=== PATIENT | male | born 1970 | race Caucasian/White ===

== ENCOUNTER → 2019-01-02 | Outpatient (CLI) | payer BC ==
[2019-01-02 14:40] LABS: HCT 46.3 % (39.0-53.0); HGB 15.4 gm/dL (13.0-17.5); MCHC 33.3 g/dL (31.0-37.0); MCV 96.2 fL (80.0-100.0); Platelet Count 251 k/uL (150-450); RBC 4.81 m/uL (4.30-5.90); RDW 14.1 % (11.5-15.5); WBC 14.5 k/uL (3.8-10.6)
[2019-01-02 14:51] LABS: Appearance,Urine Clear (Clear); Bilirubin,Urine Negative (Negative); Blood,Urine Negative (Negative); Color,Urine Yellow; Glucose,Urine (UA) Negative (Negative); Ketones,Urine Negative (Negative); Leukocyte Esterase,Urine Negative (Negative); Nitrite,Urine Negative (Negative); PH, Urine 5.5 (5.0-8.0); Protein,Urine Negative (Negative); Urobilinogen,Urine <2.0 mg/dL (<2.0)
[2019-01-02 14:52] LABS: Partial Thromboplastin Time 26.1 sec (22.0-30.0); Prothrombin Time 10.5 sec (9.0-12.0)
[2019-01-02 14:55] LABS: ALT 54 U/L (21-72); AST 41 U/L (17-59); African American GFR (CKD) >90 (>60 ml/min/1.73 sqM); Albumin 4.7 g/dL (3.5-5.0); Alkaline Phosphatase 48 U/L (38-126); Anion Gap 9 mmol/L; Blood Urea Nitrogen 19 mg/dL (9-20); Calcium 9.8 mg/dL (8.4-10.2); Carbon Dioxide 25 mmol/L (22-30); Chloride 107 mmol/L (98-107); Glucose 95 mg/dL (74-99); Potassium 4.6 mmol/L (3.5-5.1); Sodium 141 mmol/L (137-145); Total Bilirubin 0.2 mg/dL (0.2-1.3); Total Protein 7.8 g/dL (6.3-8.2)
== END | disposition home or self-care (01) ==
LOC: LABPAT 13:58
PROVIDERS: ATTEND Orthopaedic Surgery
DX: Z01.812 Encounter for preprocedural laboratory examination (principal); Z01.818 Encounter for other preprocedural examination; M16.11 Unilateral primary osteoarthritis, right hip
CPT/HCPCS: 80053; 81003; 85027; 85610; 85730; 87070; 93005

== ENCOUNTER 2019-01-09 05:29 | Inpatient (IN) | payer BC ==
[~2019-01-09 05:29] MED LIST: ACETAMINOPHEN TAB 500 MG TAB PO ONE; GABAPENTIN 300 MG CAP PO ONE; MELOXICAM 7.5 MG TAB PO ONE; TRANEXAMIC ACID 1,000 MG in SODIUM CHLORIDE 0.9% 100 ML IVPB ONE
[2019-01-09] MEDS ORDERED: ONDANSETRON 4 MG/2 ML VIAL IVP ONE (05:38)
[2019-01-09] MEDS ORDERED: LIDOCAINE 1% 20 ML VIAL (10MG/ML) FOR IV START INTRADERMA PRN (05:38)
[2019-01-09] MEDS ORDERED: DEXAMETHASONE SOD PHOSPHATE 10 MG/ML 1 ML VIAL IV ONE (05:38)
[2019-01-09] MEDS ORDERED: fentaNYL (PF) 50 MCG/ML 2 ML AMP IV PRN (05:38)
[2019-01-09] MEDS: LACTATED RINGERS 1,000 ML IV SCH (06:15)
[2019-01-09 06:44] LABS: HCT 42.8 % (39.0-53.0); HGB 14.3 gm/dL (13.0-17.5); MCH 31.6 pg (25.0-35.0); MCHC 33.5 g/dL (31.0-37.0); MCV 94.3 fL (80.0-100.0); Mean Platelet Volume 7.9; Platelet Count 214 k/uL (150-450); RBC 4.54 m/uL (4.30-5.90); WBC 10.4 k/uL (3.8-10.6)
[2019-01-09] MEDS ORDERED: PHENYLEPHRINE-0.9% NACL SYG 1 MG/10 ML SYRINGE ONE (06:49)
[2019-01-09] MEDS ORDERED: PROPOFOL 10 MG/ML 20 ML VIAL IV ONE (06:49)
[2019-01-09] MEDS ORDERED: fentaNYL (PF) 50 MCG/ML 2 ML AMP ONE (06:49)
[2019-01-09] MEDS ORDERED: LACTATED RINGERS 1,000 ML BAG IV ONE (06:49)
[2019-01-09] MEDS ORDERED: ePHEDrine SULFATE/0.9% NACL/PF 50 MG/5 ML SYRINGE IV ONE (06:49)
[2019-01-09] MEDS ORDERED: HEPARIN SODIUM,PORCINE 10,000 UNIT/ML 1 ML VIAL ONE (06:49)
[2019-01-09] MEDS ORDERED: TRANEXAMIC ACID 1,000 MG/10 ML VIAL ONE (06:49)
[2019-01-09] MEDS ORDERED: SODIUM CHLORIDE 0.9% 100 ML BAG ONE (06:49)
[2019-01-09] MEDS ORDERED: LIDOCAINE 1% INJ 10MG/ML (20 ML MDV) ONE (06:49)
[2019-01-09] MEDS ORDERED: MIDAZOLAM 2 MG/2 ML VIAL ONE (06:49)
[2019-01-09] MEDS ORDERED: ceFAZolin 3,000 MG in SODIUM CHLORIDE 0.9% IRRIGATIO 3,000 ML IRRIGATION ONE (06:55)
[2019-01-09] MEDS ORDERED: MAGNESIUM HYDROXIDE 2,400 MG/10 ML CUP PO PRN (07:00)
[2019-01-09] MEDS ORDERED: NALOXONE 0.4 MG/ML 1 ML VIAL IV PRN (07:00)
[2019-01-09] MEDS: ROPIVACAINE 246.25 MG, EPINEPHrine 0.5 MG, KETOROLAC 30 MG, cloNIDine HCL/PF 80 MCG, WA... MISCELLANE ONE ×10 (07:00→08:16)
[2019-01-09] MEDS ORDERED: HYDROcodone/APAP 5-325MG 1 EACH TAB PO PRN (07:00)
[2019-01-09] MEDS ORDERED: hydrOXYzine PAMOATE 25 MG CAP PO PRN (07:00)
[2019-01-09] MEDS ORDERED: ONDANSETRON 4 MG/2 ML VIAL IVP PRN (07:00)
[2019-01-09] MEDS ORDERED: HYDROmorphone 0.5 MG/0.5 ML SYRINGE IVP PRN (07:00)
[2019-01-09] MEDS ORDERED: DIAZEPAM 5 MG TAB PO PRN (07:00)
[2019-01-09] MEDS ORDERED: HYDROmorphone 1 MG/ML 1 ML SYRINGE IVP PRN (07:00)
--- NOTE | 2019-01-09 08:28 | P.OP ---
Date of Procedure: 01/09/19 Preoperative Diagnosis: Severe osteoarthritis right hip Postoperative Diagnosis: Severe osteoarthritis right hip Procedure(s) Performed: Right total hip arthroplasty with a direct anterior approach Implants: Blount and nephew Polarstem size 3 standard Blount [employer] Nephew R3, 3 hole acetabular shell, 52 mm Blount [employer] Nephew reflection 6.5 mm cancellus screw, 20 mm 2 Blount [employer] Nephew R3, XLPE 20 acetabular liner Blount [employer] Nephew Oxinium femoral head 36 m, -3 All components were press-fit. The articulation is Oxinium on polyethylene. Anesthesia: spinal Surgeon: Tomy Helton Electromechanical Equipment Tester #1: Sheila Stock Estimated Blood Loss (ml): 200 (64 mL returned with Cell Saver) Pathology: other (Femoral head) Condition: stable Disposition: PACU Indications for Procedure: After failure of conservative treatment we discussed the surgical and nonsurgical treatment options at length. Patient wishes to proceed with a total hip arthroplasty with a direct anterior approach. Complications specific to this procedure were discussed at length, including but not limited to infection, leg length discrepancy, dislocation, and nerve injury. Patient is aware of all these complications and informed consent was obtained Operative Findings: The operative findings are consistent with severe osteoarthritis of the right hip Description of Procedure: Patient was seen and evaluated in the preoperative area, consent was reviewed, and the surgical site was marked with a skin marker. Patient was then brought to the operating room and given prophylactic antibiotics intravenously. 1 g of Tranexamic acid was also given. A spinal anesthetic was administered by the anesthesia department. The patient was then placed on the [place] table with the bony prominences well-padded. The hip area was then prepped and draped in usual sterile fashion. A universal timeout was then performed, which confirmed the patient's name, surgical site, ALLERGIES, and procedure being performed. Next the incision site was located at 1 cm distal and 1 cm lateral to the anterior superior iliac spine. The skin and subcutaneous tissues were sharply incised. Incision was carefully dissected down to the fascia overlying the tensor fascia johnny muscle. This fascia was then incised in line with the incision. Next, using blunt finger dissection, the tensor fascia johnny muscle was dissected off its investing fascia. The muscle was then carefully retracted laterally with a cobra retractor over the lateral neck of the femur. Next, the circumflex vessels were identified and cauterized using the AquaMantis device. The anterior hip capsule was then exposed. The capsule was then opened and an inverted T fashion. Cobra retractors were then placed intracapsularly. The proximal femur was then visualized. The femoral neck was then osteotomized appropriate level above the lesser trochanter. Small amount of traction was placed with the [place] table. A small wedge of bone was then removed from the remaining femoral head. Next, using a corkscrew femoral head was easily removed from the acetabulum. On gross visual inspection, the femoral head had complete loss of articular cartilage in mu ltiple periarticular osteophytes. Attention was then turned to the acetabulum. the acetabulum was exposed and any remaining labrum was excised. Sequential reaming of the acetabulum was performed using fluoroscopic guidance. When the appropriate size was reached, a trial was then placed. The position and fit of the trial was checked with fluoroscopy. The trial was then removed. Then, using fluoroscopic guidance, the final implant was impacted at 20 of anteversion and 40 of abduction, and fully seated in the acetabulum. 2 screws were then placed in the acetabulum. Again fluoroscopy was used to check position of the screws. Next, the liner was then impacted, with a 20 elevated liner located in the anterior superior quadrant. Component locking was confirmed. Attention was then directed to the femur. With the aid of the [place] table, the femur was externally rotated to approximately 130, extended, and abducted under the opposite leg. A side hook was then placed under the proximal femur, and the side hook elevator was used to elevate the proximal femur. Retractors were then placed. A capsular release was performed, as well as a release of the conjoined tendon, which afforded excellent visualization of the proximal femur. Next, a box osteotome was used to lateralize the proximal femur. A shovel handle assembler was then used to locate the femoral canal. Sequential broaching was then performed with appropriate size which afforded excellent fixation in the proximal femur. A trial was then placed with appropriate head and neck, and the hip was gently reduced with the aid of the [place] table. Fluoroscopy was then used to check position of the components, as well as to ensure equal leg lengths. The hip was then gently dislocated and the trials were then removed. Final implants were then impacted and the hip was again reduced. Final fluoroscopic x-rays confirmed that the components were in anatomic position, as well as equal leg lengths. The hip was also taken through range of motion, and found to be stable. The hip was then copiously irrigated with antibiotic solution with pulsatile lavage. The hip was then irrigated with Irrisept solution. The soft tissues were then injected with a ropivacaine solution, which consisted of 246.25 mg of ropivacaine, 0.5 mg of epinephrine, 30 mg of Toradol, 80 g of clonidine, and 48.45 mL of sterile water, for a total of 100 mL of fluid injected. A second dose of 1 g of Tranexamic acid was also given. the fascia was then closed with 2-0 strata fix suture. The subcutaneous tissue was closed with 3-0 Vicryl. The subcuticular tissue was closed with 3-0 strata fix suture. The skin was then closed with Dermabond glue and a sterile silver dressing. The patient was then transferred to the recovery room in stable co ndition. The web press operator assistant MARTA Juarez was required due to the complexity of surgery, and the need for skilled anesthesiologists' assistant for positioning, draping, exposure, retraction, and closure of the wound.
[2019-01-09] MEDS ORDERED: LACTATED RINGERS 1,000 ML IV ONE (08:32)
--- NOTE | 2019-01-09 09:05 | XR ---
EXAMINATION TYPE: XR Hip Limited RT DATE OF EXAM: 01/09/2019 CLINICAL HISTORY: Right hip pain and osteoarthritis. TECHNIQUE: Single AP portable view of right hip is obtained immediately postoperatively. COMPARISON: None. FINDINGS: Metallic hardware from right hip arthroplasty is seen and appears satisfactory in alignment and position. There is evidence of recent surgery with subcutaneous gas noted laterally. IMPRESSION: Metallic hardware from right hip arthroplasty is satisfactory in position.
--- NOTE | 2019-01-09 09:22 | FL ---
EXAMINATION TYPE: FL guidance operating room, XR Hip Limited RT DATE OF EXAM: 01/09/2019 CLINICAL HISTORY: Fluoroscopic documentation during right hip arthroplasty TECHNIQUE: Fluoroscopy. COMPARISON: None. FINDINGS: Fluoroscopic guidance was provided during procedure performed by Dr. Helton. A total of 33 seconds of fluoroscopic time was utilized during the procedure and 0 spot images were acquired du ring right hip arthroplasty. IMPRESSION: As Above.
[2019-01-09] MEDS: HYDROmorphone 0.5 MG/0.5 ML SYRINGE IVP PRN ×3 (11:22→20:09)
[2019-01-09] MEDS: SODIUM CHLORIDE 0.9% 1,000 ML IV SCH ×2 (13:12→22:24)
[2019-01-09 13:31] VITALS: BMI 40.4
[2019-01-09] MEDS: HYDROcodone/APAP 5-325MG 1 EACH TAB PO PRN (16:43)
[2019-01-09] MEDS ORDERED: FENOFIBRATE 160 MG TAB PO SCH ×2 (18:00→21:00)
[2019-01-09] MEDS: ASPIRIN 325 MG TAB PO SCH (20:08)
[2019-01-09] MEDS ORDERED: SENNOSIDES-DOCUSATE SODIUM 1 EACH TAB PO SCH (21:00)
[2019-01-10] MEDS: HYDROmorphone 0.5 MG/0.5 ML SYRINGE IVP PRN (00:07)
--- NOTE | 2019-01-10 00:47 | P.CONS ---
History of Present Illness - Reason for Consult Consult date: 01/09/19 Medical management of hypertension and other medical problems - Chief Complaint Status post right total hip arthroplasty - History of Present Illness Patient is a 39-year-old male with a known history of hearing disorder/deafness, hypertension, hyperlipidemia, obstructive sleep apnea, osteoarthritis and ongoing nicotine addiction and marijuana use was admitted to the hospital for elective right total hip arthroplasty. Patient tolerated the procedure. Currently denied any complaints of chest pain or short period no nausea vomiting or abdominal pain. No headache or dizziness or lightheadedness. No chest pain or shortness of breath. Patient is tolerating oral diet. Patient was able to walk with walking to the bathroom. Patient does have some tenderness. The surgical site. No fever no chills. Review of Systems Constitutional: Patient denies any fever or chills . No generalized weakness or weight loss. Abdomen: Patient denied nausea vomiting and diarrhea and abdominal pain. Cardiovascular: Patient denies any chest pain or short of breath no palpitations. Respiratory: patient denied any cough is from production. No shortness of breath Neurologic: Patient denied any numbness or tingling headache. Musculoskeletal: Patient denies any complaints of joint swelling or deformity. Skin: Negative Psychiatric: Negative Endocrine: No heat or cold intolerance. No recent weight gain. Genitourinary: No dysuria or hematuria. All other 14 point ROS negative except the above Past Medical History Past Medical History: Hearing Disorder / Deafness, Hyperlipidemia, Hypertension, Musculoskeletal Disorder, Osteoarthritis (OA), Sleep Apnea/CPAP/BIPAP Additional Past Medical History / Comment(s): Hx diverticulosis w/ rupture 2001. Lt ear hearing decreased. DDD, had pain proc 2018. Lt knee buckled recently, on steroid dose pack. No tx for sleep apnea currently. Discoloration BLE. Has sl nasal congestion. History of Any Multi-Drug Resistant Organisms: None Reported Past Surgical History: Bowel Resection, Hernia Repair, Orthopedic Surgery Additional Past Surgical History / Comment(s): Pain procedures back. Rt Rotator cuff surgery. Ileostomy, then Reversal; later had scar tissue removed. Incisional Hernia. Vasectomy. Past Anesthesia/Blood Transfusion Reactions: No Reported Reaction Past Psychological History: Anxiety Additional Psychological History / Comment(s): no tx needed currently Smoking Status: Current every day smoker Past Alcohol Use History: None Reported Additional Past Alcohol Use History / Comment(s): Smoking since 1983, was 2 ppd, down to < 1 ppd and also vaping. No alcohol since 2017. Past Drug Use History: Marijuana Additional Drug Use History / Comment(s): edible marijuana use few times per week - Past Family History Mother Family Medical History: Deep Vein Thrombosis (DVT), Pulmonary Embolus Medications and Allergies Home Medications Medication Instructions Recorded Confirmed Type Fenofibrate Nanocrystallized 145 mg PO DAILY 01/03/19 01/03/19 History [Fenofibrate] Magnesium Oxide [Lama] 500 mg PO DAILY 01/03/19 01/09/19 History Meloxicam [Mobic] 15 mg PO DAILY PRN 01/03/19 01/03/19 History Methocarbamol [Robaxin] 500 mg PO HS PRN 01/03/19 01/09/19 History Naproxen [Naprosyn] 500 mg PO Q12HR PRN 01/03/19 01/03/19 History Olmesartan/Hydrochlorothiazide 1 tab PO DAILY 01/03/19 01/03/19 History [Benicar Hct 40-12.5 mg Tablet] methylPREDNISolone Dose Pack 4 mg PO DIRECTED 01/03/19 01/09/19 History [Medrol Dose Pack] rOPINIRole HCL [Requip] 0.5 mg PO HS 01/03/19 01/09/19 History Allergies Allergy/AdvReac Type Severity Reaction Status Date / Time No Known Allergies Allergy Verified 01/09/19 05:52 Physical Exam Vitals: Vital Signs Temp Pulse Pulse Resp BP Pulse Ox 01/09/19 15:00 98.6 F 92 18 128/54 93 L 01/09/19 13:35 87 14 107/62 91 L 01/09/19 12:45 71 18 114/60 95 01/09/19 12:15 81 16 122/60 97 01/09/19 11:45 78 16 130/59 95 01/09/19 11:15 72 18 126/59 96 01/09/19 10:44 79 18 111/56 96 01/09/19 10:15 70 18 108/57 95 01/09/19 09:56 71 16 101/51 99 01/09/19 09:35 76 18 104/51 94 L 01/09/19 09:20 75 18 107/63 96 01/09/19 09:05 75 18 108/52 98 01/09/19 08:50 79 18 111/54 99 10/22/19 08:38 98.2 F 88 16 110/57 99 01/09/19 06:00 98.4 F 76 16 132/78 95 Intake and Output 01/09/19 01/09/19 01/09/19 06:59 14:59 22:59 Intake Total 1001 600 Output Total 200 Balance 1001 400 Intake: IV 1001 600 Output: Estimated Blood Loss 200 Other: # Voids 3 PHYSICAL EXAMINATION: Patient is lying in the bed comfortably, no acute distress, awake alert and oriented.. HEENT: Normocephalic. Neck is supple. Pupils reactive. Nostrils clear. Oral cavity is moist. Ears reveal no drainage. Neck reveals no JVD, carotid bruits, or thyromegaly. CHEST EXAMINATION: Trachea is central. Symmetrical expansion. Lung mathis clear to auscultation and percussion. CARDIAC: Normal S1, S2 with no gallops. No murmurs ABDOMEN: Soft. Bowel sounds normal. No organomegaly. No abdominal bruits. Extremities: reveal no edema. No clubbing or cyanosis Neurologically awake, alert, oriented x3 with well-coordinated movements. No focal deficits noted Skin: No rash or skin lesions. Psychiatric: Coperative. Nonsuicidal Musculoskeletal: No joint swelling or deformity. Normal range of motion. Results CBC & Chem 7: 01/09/19 06:14 Assessment and Plan Assessment: Status post right total hip arthroplasty. Postoperative day 0. Osteoarthritis of multiple joints Morbid obesity BMI 40.8 Hypertension controlled. Currently on losartan/hydrochlorothiazide at home. Hyperlipidemia Hearing disorder/deafness History of diverticulosis with rupture into his into Degenerative disc disease Obstructive sleep apnea. Currently not on CPAP Anxiety Nicotine addiction and marijuana use an almost daily basis DVT prophylaxis Plan: Patient be continued on current pain management, bowel regimen. Encourage incentive spirometry. Encourage ambulation. Continue with home blood pressure medications and other medications. Follow closely. Further recommendations based on the clinical course. We will continue to follow with you. Smoking cessation has been counseled extensively. Thank you for your consult. Time with Patient: Greater than 30
[2019-01-10] MEDS: LACTATED RINGERS 1,000 ML IV SCH (06:31)
[2019-01-10 07:31] VITALS: BP 124/74; PULSE 71; RESP 12; TEMP 98.5
[2019-01-10] MEDS: ASPIRIN 325 MG TAB PO SCH (08:17)
[2019-01-10] MEDS ORDERED: MELOXICAM 7.5 MG TAB PO SCH (09:00)
--- NOTE | 2019-01-10 09:03 | P.DS ---
Providers Date of admission: 01/09/19 05:29 Expected date of discharge: 01/10/19 Attending physician: Tomy Helton Consults: 01/09/19 07:00 Consult Physician Routine Consulting Provider: Columba Coffey Consult Reason/Comments: medical management Do you want consulting provider notified?: Yes Primary care physician: Ellie Obregon Charbal - Discharge Diagnosis(es) (1) Osteoarthritis of right hip Current Visit: Yes Status: Acute (2) S/P total hip arthroplasty Current Visit: Yes Status: Acute Hospital Course: This is a 48-year-old male with known history of degenerative arthritis of the right hip. The patient presents for evaluation. After discussion and consideration patient elects to proceed with total hip arthroplasty. The patient is seen preoperatively by Dr. Helton and medically cleared for surgery by their primary care physician. Patient is admitted to [facility] on 01/09/2019 for total hip arthroplasty. The procedures performed without complication or sequelae. The patient is doing well postoperatively. Labs and vital signs are stable on day of discharge. On day of discharge patient's hip incision is healing well. There is minimal erythema. There is no drainage noted at this time. There is minimal soft tissue swelling to the hip and thigh. Patient has full foot and ankle motion without difficulty or pain. Calf is soft and nontender to palpation. Neurovascular status to the right lower extremity is intact. Patient is discharged home in good condition. Opioid start talking form is reviewed and signed at patient bedside. Please see med rec for accurate list of home medications. Plan - Discharge Summary Discharge Rx Participant: No New Discharge Prescriptions: New Aspirin 325 mg PO BID #60 tab HYDROcodone/APAP 5-325MG [[place] 5-325] 1 - 2 tab PO Q6HR PRN #56 tab PRN Reason: Pain Sennosides [Senokot] 1 tab PO BID #60 tablet No Action Methocarbamol [Robaxin] 500 mg PO HS PRN PRN Reason: MUSCLE SPASMS Meloxicam [Mobic] 15 mg PO DAILY PRN PRN Reason: Pain rOPINIRole HCL [Requip] 0.5 mg PO HS Olmesartan/Hydrochlorothiazide [Benicar Hct 40-12.5 mg Tablet] 1 tab PO DAILY Fenofibrate Nanocrystallized [Fenofibrate] 145 mg PO DAILY Naproxen [Naprosyn] 500 mg PO Q12HR PRN PRN Reason: Pain methylPREDNISolone Dose Pack [Medrol Dose Pack] 4 mg PO DIRECTED Magnesium Oxide [Lama] 500 mg PO DAILY Discharge Medication List Fenofibrate Nanocrystallized [Fenofibrate] 145 mg PO DAILY 01/03/19 [History] Magnesium Oxide [Lama] 500 mg PO DAILY 01/03/19 [History] Meloxicam [Mobic] 15 mg PO DAILY PRN 01/03/19 [History] Methocarbamol [Robaxin] 500 mg PO HS PRN 01/03/19 [History] Naproxen [Naprosyn] 500 mg PO Q12HR PRN 01/03/19 [History] Olmesartan/Hydrochlorothiazide [Benicar Hct 40-12.5 mg Tablet] 1 tab PO DAILY 01/03/19 [History] methylPREDNISolone Dose Pack [Medrol Dose Pack] 4 mg PO DIRECTED 01/03/19 [History] rOPINIRole HCL [Requip] 0.5 mg PO HS 01/03/19 [History] Aspirin 325 mg PO BID #60 tab 01/10/19 [Rx] HYDROcodone/APAP 5-325MG [[place] 5-325] 1 - 2 tab PO Q6HR PRN #56 tab 01/10/19 [Rx] Sennosides [Senokot] 1 tab PO BID #60 tablet 01/10/19 [Rx] Follow up Appointment(s)/Referral(s): Tomy Helton DO [Doctor of Osteopathic Medicine] - 2 Weeks Activity/Diet/Wound Care/Special Instructions: Weightbearing as tolerated with walker. Leave dressing intact. Dressing may be removed by home care nurse or by patient in 10 days. May shower with dressing on. Recommend use of compression stockings daily for at least 2 weeks during the day to help prevent swelling and blood clots. May remove at night before sleeping. Please follow-up with [facility] in 2 weeks and call with any questions or concerns, . Discharge Disposition: HOME WITH HOME HEALTH SERVICES
[2019-01-10 09:26] LABS: Basophils # (A) 0.1 k/uL (0-0.2); Basophils % (A) 1 %; Eosinophils # (A) 0.2 k/uL (0-0.7); Eosinophils % (A) 1 %; HCT 41.3 % (39.0-53.0); HGB 13.5 gm/dL (13.0-17.5); Lymphocytes # (A) 2.1 k/uL (1.0-4.8); Lymphocytes % (A) 15 %; MCH 31.4 pg (25.0-35.0); MCHC 32.6 g/dL (31.0-37.0); MCV 96.3 fL (80.0-100.0); Mean Platelet Volume 7.8; Monocytes % (A) 7 %; Neutrophils # (A) 10.4 k/uL (1.3-7.7); Neutrophils % (A) 74 %; Platelet Count 231 k/uL (150-450); RBC 4.29 m/uL (4.30-5.90); RDW 13.9 % (11.5-15.5); WBC 14.1 k/uL (3.8-10.6)
[2019-01-10] MEDS: HYDROcodone/APAP 5-325MG 1 EACH TAB PO PRN (10:57)
== END 2019-01-10 11:00 | disposition home health service (06) | DRG 470 ==
LOC: 2ORMAIN 05:29 → 4SSUR 13:08
PROVIDERS: ADMIT Orthopaedic Surgery; ATTEND Orthopaedic Surgery
PROC: 0SR906A Replacement of Right Hip Joint with Oxidized Zirconium on Polyethylene Synthetic Substitute, Uncemented, Open Approach (ICD-10-PCS; principal; 2019-01-09 07:00)
DX: M16.11 Unilateral primary osteoarthritis, right hip (principal); Z68.41 Body mass index [BMI] 40.0-44.9, adult; E66.01 Morbid (severe) obesity due to excess calories; E78.5 Hyperlipidemia, unspecified; Z71.6 Tobacco abuse counseling; F17.210 Nicotine dependence, cigarettes, uncomplicated; F17.290 Nicotine dependence, other tobacco product, uncomplicated; G47.33 Obstructive sleep apnea (adult) (pediatric); H91.90 Unspecified hearing loss, unspecified ear; I10 Essential (primary) hypertension; Z79.1 Long term (current) use of non-steroidal anti-inflammatories (NSAID); Z83.2 Family history of diseases of the blood and blood-forming organs and certain disorders involving the immune mechanism; F41.9 Anxiety disorder, unspecified; Z90.49 Acquired absence of other specified parts of digestive tract
CPT/HCPCS: 73501; 85025; 85027; 86850; 86891; 86900; 86901; 88300

== ENCOUNTER → 2020-03-11 | Outpatient (CLI) | payer BC | END | disposition home or self-care (01) | LOC: LABPAT 13:38 | PROVIDERS: ATTEND Surgery | DX: Z01.818 Encounter for other preprocedural examination (principal); K43.2 Incisional hernia without obstruction or gangrene; Z01.812 Encounter for preprocedural laboratory examination; Z20.828 Contact with and (suspected) exposure to other viral communicable diseases | CPT/HCPCS: 86900; 86901; 86850; 93005; 36415; U0003 ==

== ENCOUNTER → 2020-05-09 | Outpatient (CLI) | payer OTHER ==
[2020-05-09 13:32] LABS: Basophils % (A) 1 %; Eosinophils # (A) 0.4 k/uL (0-0.7); Eosinophils % (A) 5 %; HCT 41.6 % (39.0-53.0); HGB 13.6 gm/dL (13.0-17.5); Lymphocytes # (A) 1.9 k/uL (1.0-4.8); Lymphocytes % (A) 24 %; MCH 31.2 pg (25.0-35.0); MCHC 32.8 g/dL (31.0-37.0); MCV 95.1 fL (80.0-100.0); Mean Platelet Volume 9.5; Monocytes # (A) 0.6 k/uL (0-1.0); Monocytes % (A) 7 %; Neutrophils # (A) 4.7 k/uL (1.3-7.7); Neutrophils % (A) 61 %; Platelet Count 227 k/uL (150-450); RBC 4.37 m/uL (4.30-5.90); RDW 13.6 % (11.5-15.5); WBC 7.6 k/uL (3.8-10.6)
== END | disposition home or self-care (01) ==
LOC: LABPAT 11:24
PROVIDERS: ATTEND Surgery
DX: Z01.818 Encounter for other preprocedural examination (principal); K43.2 Incisional hernia without obstruction or gangrene; Z20.822 Contact with and (suspected) exposure to COVID-19
CPT/HCPCS: 84132; 85025; 93005; U0003; C9803; U0005

== ENCOUNTER 2020-05-20 11:54 | Day surgery (SDC) | payer BC, OTHER ==
[2020-05-13 10:53] VITALS: BMI 39.9
[~2020-05-20 11:54] MED LIST changes: -ACETAMINOPHEN TAB 500 MG TAB PO ONE; +DEXAMETHASONE SOD PHOSPHATE 4 MG/ML 1 ML VIAL IV ONE; -GABAPENTIN 300 MG CAP PO ONE; +HEPARIN SODIUM,PORCINE 5,000 UNIT/ML 1 ML VIAL SQ PRN; +LIDOCAINE 1% (10MG/ML) FOR IV START INTRADERMA PRN; -MELOXICAM 7.5 MG TAB PO ONE; +ONDANSETRON 4 MG/2 ML VIAL IVP ONE; -TRANEXAMIC ACID 1,000 MG in SODIUM CHLORIDE 0.9% 100 ML IVPB ONE
[2020-05-20] MEDS ORDERED: ONDANSETRON 4 MG/2 ML VIAL ONE (11:57)
[2020-05-20] MEDS: LACTATED RINGERS 1,000 ML IV SCH ×2 (12:28→14:00)
[2020-05-20] MEDS ORDERED: LIDOCAINE 1% INJ 10MG/ML (20 ML MDV) ONE ×2 (13:04→14:02)
[2020-05-20] MEDS ORDERED: MIDAZOLAM 2 MG/2 ML VIAL IVP ONE (13:04)
[2020-05-20] MEDS ORDERED: fentaNYL (PF) 50 MCG/ML 2 ML AMP IVP ONE (13:06)
--- NOTE | 2020-05-20 13:28 | P.ANPRN ---
Procedure Note - Anesthesia - Nerve Block Performed Bilateral Erector Spinae Single Time Out Performed: Yes Date of Procedure: 05/20/20 Procedure Start Time: 13:03 Procedure Stop Time: 13:15 Location of Patient: PreOp Indication: Acute Post-Operative Pain, Requested by Surgeon Specifically requested for management of pain by DrSylvain: Yenny Blackmon Sedation Type: Sedate with meaningful contact maintained Preparation: Sterile Prep Position: Supine Catheter: None Needle Types: Facet Needle Gauge: 21 Ultrasound used to visualize needle placement: Yes Ultrasound used to observe medication spread: Yes Injectate: 0.5% Ropivacaine (see comment for volume) Blood Aspirated: No Pain Paresthesia on Injection Noted: No Resistance on Injection: Normal Image Stored and Saved: Yes Events: Uneventful and Well Tolerated (60cc 0.25% Ropivacaine total)
[2020-05-20] MEDS ORDERED: ROPIVACAINE 5 MG/ML 30 ML VIAL ONE (14:02)
[2020-05-20] MEDS ORDERED: fentaNYL (PF) 50 MCG/ML 2 ML AMP ONE (14:02)
[2020-05-20] MEDS ORDERED: PROPOFOL 10 MG/ML 20 ML VIAL IV ONE (14:02)
[2020-05-20] MEDS ORDERED: NEOSTIGMINE 1 MG/ML 10 ML VIAL ONE (14:02)
[2020-05-20] MEDS ORDERED: MIDAZOLAM 2 MG/2 ML VIAL ONE (14:02)
[2020-05-20] MEDS ORDERED: GLYCOPYRROLATE 0.2 MG/ML 2 ML VIAL ONE (14:02)
[2020-05-20] MEDS ORDERED: ROCURONIUM 10 MG/ML (5 ML VIAL) IV ONE (14:02)
[2020-05-20] MEDS ORDERED: SUCCINYLCHOLINE CHLORIDE 100 MG/5 ML SYR IV ONE (14:02)
--- NOTE | 2020-05-20 14:58 | P.OP ---
Date of Procedure: 05/20/20 Preoperative Diagnosis: Incisional hernia Postoperative Diagnosis: Incisional hernia Procedure(s) Performed: Open incisional hernia repair with mesh placement Anesthesia: ANDREW Surgeon: Yenny Blackmon Pathology: none sent Condition: stable Disposition: same day Indications for Procedure: 50-year-old male presented to the surgery clinic with complaints of a bulge in the abdomen. He is noted to have multiple laparotomy procedures in the past secondary to diverticulitis and intestinal obstruction requiring multiple bowel resections. He has had a previous hernia repair. On CT, there was a notable hernia defect superior to the previous hernia repair. Plan is for open incisional hernia repair with mesh placement. The patient was explained risks, benefits and alternatives to the procedure and did provide consent prior to attending the operating suite. His tobacco cigarette use was discussed with the patient and he is aware of decreased success of the procedure and decreased wound healing chances due to history of smoking. Operative Findings: Hernia defect measuring approximately 2.5 cm Description of Procedure: The patient was brought to the operating suite and placed in supine position on the operating table. Sedation was provided by anesthesia and the patient underwent endotracheal intubation. The patient was prepped and draped in regular sterile fashion. The palpable hernia defect was noted and an incision was made over the site. Dissection was carried towards the fascia. The fascia was clearly visualized and the hernia defect was noted to contain both preperitoneal fat and omentum. The the edges of the fascia were cleared of adherent tissue and grasped with [place]'s. The hernia contents were reduced and the posterior portion of the abdominal wall was cleared to provide a surface for mesh placement. A ventralex mesh was then placed and secured in the 2:00, 4:00, 8:00 and 10:00 positions using 2-0 Vicryl suture. The mesh was secured to the posterior abdominal wall with this suture. At this point, the defect was then closed over the mesh using a running 1-0 Stratafix suture. Wound was irrigated. Wound was then closed with skin antoinette. Sterile dressing was applied. The patient was awakened in the operating suite and taken to postanesthesia care unit in stable condition.
[2020-05-20 15:20] VITALS: TEMP 99.2
[2020-05-20] MEDS ORDERED: KETOROLAC 15 MG/ML 1 ML VIAL IVP ONE (15:35)
[2020-05-20] MEDS ORDERED: LACTATED RINGERS 1,000 ML IV ONE (15:48)
[2020-05-20 16:06] VITALS: RESP 16
[2020-05-20] MEDS ORDERED: HYDROcodone/APAP 5-325MG 1 EACH TAB ONE (16:16)
[2020-05-20 17:06] VITALS: BP 125/67; PULSE 70
== END 2020-05-20 17:20 | disposition home or self-care (01) ==
LOC: OR 11:54
PROVIDERS: ATTEND Surgery
DX: K43.2 Incisional hernia without obstruction or gangrene (principal); I10 Essential (primary) hypertension; E78.00 Pure hypercholesterolemia, unspecified; K57.90 Diverticulosis of intestine, part unspecified, without perforation or abscess without bleeding; Z98.890 Other specified postprocedural states; Z93.2 Ileostomy status; Z82.49 Family history of ischemic heart disease and other diseases of the circulatory system; E78.5 Hyperlipidemia, unspecified; G47.33 Obstructive sleep apnea (adult) (pediatric); F17.200 Nicotine dependence, unspecified, uncomplicated; M19.90 Unspecified osteoarthritis, unspecified site; Z79.1 Long term (current) use of non-steroidal anti-inflammatories (NSAID); Z79.899 Other long term (current) drug therapy
CPT/HCPCS: 49560; 49568; 64999; 76942; C1781; J2250; J1644; J1100; J2710; J0690; J2405; J2001; J3010; J2795; J1885; J0330; J2704; 36415; 86850; 86900; 86901